=== PATIENT | male | born 1975 | race Caucasian/White ===

== ENCOUNTER → 2017-02-17 | Outpatient (CLI) | payer MEDICARE ==
[~2017-02-17] MED LIST: ATEN100T PO; ATOR10TA9 PO; BUTA1CAP8 PO; DULO60CA55 PO; FERR-46 PO; GABA600T2 PO; HYDR100C2 PO; HYDR50TA13 PO; MELO15TA6 PO; OMEP-110 PO; ONDA8TAB16 SL; OXYC-307 PO; OXYC10TA6 PO; SUMA100T4 PO; TIZA4TAB PO; TRAZ100T15 PO; iron
[2017-02-17 12:43] LABS: HEMATOCRIT 47.1 % (39.2-51.8); WHITE BLOOD COUNT 10.6 x10^3/uL (3.4-10)
[2017-02-17 12:53] LABS: BLOOD UREA NITROGEN 10 mg/dL (7-18)
[2017-02-17 12:58] LABS: ASPARTATE AMINO TRANSFERASE 28 U/L (15-37)
== END | disposition home or self-care (01) ==
LOC: STAR 11:04
PROVIDERS: ATTEND Orthopaedic Surgery Orthopaedic Surgery of the Spine
DX: Z01.818 Encounter for other preprocedural examination (principal); M50.30 Other cervical disc degeneration, unspecified cervical region; M48.02 Spinal stenosis, cervical region; Z98.890 Other specified postprocedural states
CPT/HCPCS: 36415; 71020; 80053; 81001; 85025; 93005

== ENCOUNTER 2017-03-01 00:10 | Inpatient (IN) | payer MEDICARE ==
[~2017-03-01] VITALS: Ht 188 cm; Wt 149.2 kg
[2017-03-01] MEDS ORDERED: ONDANSETRON 2MG/ML, 2ML ONE (00:54)
[2017-03-01] MEDS ORDERED: HYDROmorphone 1 MG/ML, 1ML ONE ×5 (00:54→04:43)
[2017-03-01] MEDS ORDERED: OXYC10TA47 PO (00:59)
[2017-03-01] MEDS ORDERED: OXYC10TA6 PO (00:59)
[2017-03-01] MEDS ORDERED: HYDROmorphone 1 MG/ML, 1ML IV ONE ×2 (01:00→02:00)
[2017-03-01] MEDS ORDERED: SODIUM CHLORIDE 0.9% 1,000ML IV ONE (01:00)
[2017-03-01] MEDS ORDERED: ONDANSETRON 2MG/ML, 2ML IVPush ONE (01:00)
[2017-03-01 01:13] LABS: HEMATOCRIT 41.8 % (39.2-51.8); HEMOGLOBIN 14.3 g/dL (13.7-18.0); WHITE BLOOD COUNT 13.2 x10^3/uL (3.4-10)
[2017-03-01 01:24] LABS: BLOOD UREA NITROGEN 10 mg/dL (7-18)
[2017-03-01] MEDS ORDERED: HYDROmorphone 2 MG/ML, 1ML IVPush STA ×2 (01:57→03:27)
[2017-03-01] MEDS ORDERED: HYDROmorphone 1 MG/ML, 1ML IVPush STA (03:27)
[2017-03-01] MEDS ORDERED: VANCOMYCIN PER PHARMACY MC ONE (04:00)
[2017-03-01] MEDS ORDERED: VANCOMYCIN 2,500 MG in SODIUM CHLORIDE 0.9% 500 ML IV ONE (04:00)
[2017-03-01] MEDS ORDERED: PIPERACILLIN/TAZO/PMX 3.375GM 50 ML IVPB ONE (04:00)
[2017-03-01] MEDS: SODIUM CHLORIDE 0.9% 1,000 ML IV ONE ×2 (04:16→05:50)
[2017-03-01] MEDS ORDERED: PIPERACILLIN/TAZO/PMX 3.375GM 50 ML ONE (04:18)
[2017-03-01] MEDS ORDERED: ONDANSETRON 2MG/ML, 2ML IVPush PRN ×2 (04:30)
[2017-03-01] MEDS ORDERED: hydrOXyzine 50MG TABLET PO PRN (04:30)
[2017-03-01] MEDS ORDERED: HYDROmorphone 1 MG/ML, 1ML IVPush PRN (04:30)
[2017-03-01] MEDS ORDERED: POLYETHYLENE GLYCOL 17 GM PACKET PO PRN (04:30)
[2017-03-01] MEDS ORDERED: ACETAMINOPHEN 325 MG TABLET PO PRN (04:30)
[2017-03-01] MEDS ORDERED: SUMATRIPTAN 100 MG TABLET PO PRN (04:30)
[2017-03-01] MEDS ORDERED: OXYcodone IR 5MG TABLET PO PRN (04:30)
[2017-03-01] MEDS ORDERED: BISACODYL 10 MG SUPP PR PRN (04:30)
[2017-03-01] MEDS ORDERED: ENALAPRILAT 1.25 MG/ML, 2ML IVPush PRN (04:30)
[2017-03-01] MEDS ORDERED: BUTALBIT/ACETAMIN/CAFF/CODEINE CAPSULE PO PRN (04:30)
[2017-03-01] MEDS ORDERED: VANCOMYCIN PER PHARMACY MC PRN (04:30)
[2017-03-01] MEDS ORDERED: hydrALAzine 20 MG/ML, 1ML IVPush PRN (04:30)
[2017-03-01] MEDS: PIPERACILLIN/TAZO/PMX 3.375GM 50 ML IV SCH ×2 (04:45→18:07)
[2017-03-01] MEDS ORDERED: OMNIPAQUE 350 MG/ML, 100ML BOTTLE ONE (04:49)
[2017-03-01 05:15] VITALS: BP 149/86
[2017-03-01 05:43] VITALS: BP 149/86
[2017-03-01] MEDS: OXYcodone IR 5MG TABLET PO SCH ×5 (05:48→20:08)
[2017-03-01] MEDS: SODIUM CHLORIDE 0.9% 1,000 ML IV SCH ×3 (05:50→18:08)
[2017-03-01] MEDS ORDERED: PHARMACOKINETIC MONITORING MC PRN (06:00)
[2017-03-01 08:32] VITALS: BP 126/75
[2017-03-01] MEDS ORDERED: ATENOLOL 100 MG TABLET PO SCH (09:00)
[2017-03-01] MEDS ORDERED: OMEPRAZOLE 20 MG CAPSULE.DR PO SCH (09:00)
[2017-03-01] MEDS: HYDROmorphone 2 MG/ML, 1ML IVPush PRN ×2 (09:27→17:20)
[2017-03-01] MEDS: OxyconTIN ER 10 MG TAB.ER PO SCH ×2 (09:28→20:08)
[2017-03-01] MEDS: DULOXETINE 30 MG CAPSULE.DR PO SCH (09:29)
[2017-03-01] MEDS: FERROUS SULFATE 325 MG TABLET PO SCH (09:30)
[2017-03-01] MEDS: SENNA/DOCUSATE TABLET PO SCH (09:30)
[2017-03-01] MEDS ORDERED: BUPIVACAINE/PF 0.5% ONE (11:48)
[2017-03-01] MEDS ORDERED: EPINEPHRINE 1 MG/ML, 1ML ONE (11:48)
[2017-03-01] MEDS ORDERED: THROMBIN 5,000 UNIT VIAL TP ONE (11:49)
[2017-03-01] MEDS ORDERED: BACITRACIN OINT 500U/GM, 15 GM ONE (11:49)
[2017-03-01] MEDS ORDERED: BACITRACIN 50,000 UNIT ONE (11:49)
[2017-03-01] MEDS ORDERED: MIDAZOLAM 1 MG/ML, 2ML ONE (12:22)
[2017-03-01] MEDS ORDERED: FENTANYL PF 100 MCG/2ML ONE ×2 (12:24→14:18)
[2017-03-01] MEDS ORDERED: GLYCOPYRROLATE 0.2MG/1ML ONE (12:29)
[2017-03-01] MEDS ORDERED: CEFAZOLIN 1,000 MG ONE (12:29)
[2017-03-01] MEDS ORDERED: PROPOFOL 10 MG/ML, 20ML ONE (12:29)
[2017-03-01] MEDS ORDERED: DEXAMETHASONE 4 MG/ML, 1ML ONE (12:29)
[2017-03-01] MEDS ORDERED: LIDOCAINE GEL 2%, 5ML ONE (12:29)
[2017-03-01] MEDS ORDERED: VANCOMYCIN 1,000 MG ONE (13:26)
[2017-03-01] MEDS ORDERED: BUPIVACAINE LIPOSOME/PF INFIL ONE (14:00)
[2017-03-01] MEDS ORDERED: PROPOFOL 100 ML IV ONE (14:41)
[2017-03-01] MEDS: PROPOFOL 100 ML IV PRN ×5 (15:00→23:15)
[2017-03-01] MEDS: ALBUTEROL/IPRATROPIUM 2.5MG/0.5MG, 3 ML INLINE SCH ×3 (16:00→21:54)
[2017-03-01] MEDS ORDERED: LIDOCAINE-MPF 1%, 2ML ENDO PRN (16:00)
[2017-03-01 16:01] LABS: ABG COLLECTION SITE LEFT BRACHIAL
[2017-03-01] MEDS: FAMOTIDINE 20 MG/2 ML IV SCH (18:08)
[2017-03-01] MEDS: HEPARIN 5,000 UNITS/ML, 1ML SQ SCH (18:08)
[2017-03-01] MEDS: ATORVASTATIN 40 MG TABLET PO SCH (20:07)
[2017-03-01] MEDS: GABAPENTIN 400 MG CAPSULE PO SCH (20:07)
[2017-03-01] MEDS ORDERED: TRAZODONE 100MG TABLET PO SCH (21:00)
[2017-03-01] MEDS: TRAZODONE 100MG TABLET PO SCH (21:31)
[2017-03-02] MEDS: PIPERACILLIN/TAZO/PMX 3.375GM 50 ML IV SCH ×2 (00:02→05:13)
[2017-03-02] MEDS: VANCOMYCIN 2,200 MG in SODIUM CHLORIDE 0.9% 500 ML IV SCH ×3 (00:02→18:43)
[2017-03-02] MEDS: HEPARIN 5,000 UNITS/ML, 1ML SQ SCH ×3 (00:02→16:30)
[2017-03-02] MEDS: OXYcodone IR 5MG TABLET PO SCH ×6 (00:03→20:06)
[2017-03-02] MEDS: PROPOFOL 100 ML IV PRN ×4 (01:07→07:12)
[2017-03-02] MEDS: ALBUTEROL/IPRATROPIUM 2.5MG/0.5MG, 3 ML INLINE SCH ×3 (04:00→10:50)
[2017-03-02] MEDS: FAMOTIDINE 20 MG/2 ML IV SCH ×2 (04:05→16:30)
[2017-03-02 05:00] VITALS: BP 132/69
[2017-03-02] MEDS: SODIUM CHLORIDE 0.9% 1,000 ML IV SCH ×2 (05:13→14:38)
[2017-03-02 05:46] LABS: BLOOD UREA NITROGEN 9 mg/dL (7-18)
[2017-03-02 05:53] LABS: ASPARTATE AMINO TRANSFERASE 24 U/L (15-37)
[2017-03-02 06:09] LABS: ABG COLLECTION SITE RIGHT RADIAL; COLLATERAL CIRCULATION TESTING NORMAL
[2017-03-02 07:23] LABS: HEMATOCRIT 38.7 % (39.2-51.8); HEMOGLOBIN 13.3 g/dL (13.7-18.0); WHITE BLOOD COUNT 14.9 x10^3/uL (3.4-10)
[2017-03-02] MEDS: HYDROmorphone 2 MG/ML, 1ML IVPush PRN (07:51)
[2017-03-02] MEDS: OxyconTIN ER 10 MG TAB.ER PO SCH ×2 (09:00→20:06)
[2017-03-02] MEDS: DULOXETINE 30 MG CAPSULE.DR PO SCH (10:05)
[2017-03-02] MEDS: FERROUS SULFATE 325 MG TABLET PO SCH (10:06)
[2017-03-02] MEDS: ATENOLOL 50 MG TABLET PO SCH (10:06)
[2017-03-02] MEDS: SENNA/DOCUSATE TABLET PO SCH (10:06)
[2017-03-02] MEDS: DEXAMETHASONE 4 MG/ML, 1ML IVPush SCH ×2 (10:23→16:30)
[2017-03-02] MEDS: PIPERACILLIN/TAZO/PMX 4.5GM 100 ML IV SCH ×2 (12:43→22:22)
[2017-03-02] MEDS: VANCOMYCIN 2,000 MG in SODIUM CHLORIDE 0.9% 500 ML IV SCH (20:06)
[2017-03-02] MEDS: GABAPENTIN 400 MG CAPSULE PO SCH (20:06)
[2017-03-02] MEDS: TRAZODONE 100MG TABLET PO SCH (20:07)
[2017-03-02] MEDS: ATORVASTATIN 40 MG TABLET PO SCH (20:07)
[2017-03-03] MEDS: HEPARIN 5,000 UNITS/ML, 1ML SQ SCH ×3 (00:37→16:29)
[2017-03-03] MEDS: OXYcodone IR 5MG TABLET PO SCH ×6 (00:37→20:40)
[2017-03-03] MEDS: FAMOTIDINE 20 MG/2 ML IV SCH ×2 (04:24→16:29)
[2017-03-03 05:00] LABS: HEMATOCRIT 36.2 % (39.2-51.8); HEMOGLOBIN 12.2 g/dL (13.7-18.0); WHITE BLOOD COUNT 10.8 x10^3/uL (3.4-10)
[2017-03-03 05:08] LABS: BLOOD UREA NITROGEN 11 mg/dL (7-18)
[2017-03-03 05:13] LABS: ASPARTATE AMINO TRANSFERASE 10 U/L (15-37)
[2017-03-03] MEDS: PIPERACILLIN/TAZO/PMX 4.5GM 100 ML IV SCH ×3 (05:56→22:47)
[2017-03-03 06:07] VITALS: BP 120/60
[2017-03-03] MEDS: VANCOMYCIN 2,000 MG in SODIUM CHLORIDE 0.9% 500 ML IV SCH ×2 (08:01→19:36)
[2017-03-03] MEDS: SODIUM CHLORIDE 0.9% 1,000 ML IV SCH (08:01)
[2017-03-03] MEDS: FERROUS SULFATE 325 MG TABLET PO SCH (09:01)
[2017-03-03] MEDS: SENNA/DOCUSATE TABLET PO SCH (09:01)
[2017-03-03] MEDS: ATENOLOL 50 MG TABLET PO SCH (09:01)
[2017-03-03] MEDS: DULOXETINE 30 MG CAPSULE.DR PO SCH (09:01)
[2017-03-03] MEDS: OxyconTIN ER 10 MG TAB.ER PO SCH ×2 (09:02→22:47)
[2017-03-03 17:30] VITALS: BP 107/82
[2017-03-03] MEDS: GABAPENTIN 400 MG CAPSULE PO SCH (20:40)
[2017-03-03] MEDS: ATORVASTATIN 40 MG TABLET PO SCH (20:40)
[2017-03-03 20:45] VITALS: BP 117/77
[2017-03-03] MEDS: TRAZODONE 100MG TABLET PO SCH (22:47)
[2017-03-03 23:20] VITALS: BP 115/72
[2017-03-04] MEDS: HEPARIN 5,000 UNITS/ML, 1ML SQ SCH ×3 (01:18→15:51)
[2017-03-04] MEDS: OXYcodone IR 5MG TABLET PO SCH ×5 (01:18→18:13)
[2017-03-04 03:59] VITALS: BP_SYST 116; BP_SYST 132; BP_DIAS 46; BP_DIAS 83
[2017-03-04] MEDS: FAMOTIDINE 20 MG/2 ML IV SCH ×2 (04:38→15:51)
[2017-03-04 05:23] LABS: HEMATOCRIT 37.1 % (39.2-51.8); HEMOGLOBIN 12.4 g/dL (13.7-18.0); WHITE BLOOD COUNT 8.5 x10^3/uL (3.4-10)
[2017-03-04] MEDS: PIPERACILLIN/TAZO/PMX 4.5GM 100 ML IV SCH (05:26)
[2017-03-04 05:34] LABS: BLOOD UREA NITROGEN 11 mg/dL (7-18)
[2017-03-04 07:38] VITALS: BP 117/77
[2017-03-04] MEDS: SENNA/DOCUSATE TABLET PO SCH (08:51)
[2017-03-04] MEDS: FERROUS SULFATE 325 MG TABLET PO SCH (08:51)
[2017-03-04] MEDS: DULOXETINE 30 MG CAPSULE.DR PO SCH (08:51)
[2017-03-04] MEDS: OxyconTIN ER 10 MG TAB.ER PO SCH ×2 (08:51→21:34)
[2017-03-04] MEDS: ATENOLOL 50 MG TABLET PO SCH (08:52)
[2017-03-04] MEDS: ERTAPENEM 1 GM in SODIUM CHLORIDE 0.9% 50 ML IV SCH (11:29)
[2017-03-04 13:53] VITALS: BP 126/80
[2017-03-04] MEDS ORDERED: PICC FLUSH PROTOCOL XX SCH (16:30)
[2017-03-04 19:10] VITALS: BP 114/74
[2017-03-04] MEDS: GABAPENTIN 400 MG CAPSULE PO SCH (21:33)
[2017-03-04] MEDS: ATORVASTATIN 40 MG TABLET PO SCH (21:33)
[2017-03-04] MEDS: TRAZODONE 100MG TABLET PO SCH (21:34)
[2017-03-05] MEDS: OXYcodone IR 5MG TABLET PO SCH ×5 (00:06→16:02)
[2017-03-05 02:59] VITALS: BP 116/70
[2017-03-05 05:03] LABS: HEMATOCRIT 35.8 % (39.2-51.8); HEMOGLOBIN 12.1 g/dL (13.7-18.0); WHITE BLOOD COUNT 8.1 x10^3/uL (3.4-10)
[2017-03-05 08:00] VITALS: BP 149/89
[2017-03-05] MEDS: HEPARIN 5,000 UNITS/ML, 1ML SQ SCH ×3 (08:06→16:02)
[2017-03-05] MEDS: FERROUS SULFATE 325 MG TABLET PO SCH (08:07)
[2017-03-05] MEDS: OxyconTIN ER 10 MG TAB.ER PO SCH (08:07)
[2017-03-05] MEDS: DULOXETINE 30 MG CAPSULE.DR PO SCH (08:07)
[2017-03-05] MEDS: SENNA/DOCUSATE TABLET PO SCH (08:08)
[2017-03-05] MEDS: ATENOLOL 50 MG TABLET PO SCH (08:08)
[2017-03-05] MEDS ORDERED: FAMOTIDINE 20 MG TABLET PO SCH (09:00)
[2017-03-05] MEDS: ERTAPENEM 1 GM in SODIUM CHLORIDE 0.9% 50 ML IV SCH (11:55)
[2017-03-05 14:00] VITALS: BP 122/77
[2017-03-05] MEDS ORDERED: POLY17PO5 PO (14:20)
[2017-03-05] MEDS ORDERED: ERTA1VIA IV (14:20)
[2017-03-05] MEDS ORDERED: MAGN400T26 PO (14:35)
== END 2017-03-05 16:30 | disposition home or self-care (01) | DRG 901 ==
LOC: ED 00:38 → EDIP 04:16 → 4NOR 05:30 → CCU 14:50 → 4NOR 03-03 16:03
PROVIDERS: ADMIT Internal Medicine; ATTEND Internal Medicine
PROC: 0RP30JZ Removal of Synthetic Substitute from Cervical Vertebral Disc, Open Approach (ICD-10-PCS; 2017-03-01)
PROC: 0JB50ZZ Excision of Left Neck Subcutaneous Tissue and Fascia, Open Approach (ICD-10-PCS; 2017-03-01)
PROC: 0H94XZZ Drainage of Neck Skin, External Approach (ICD-10-PCS; principal; 2017-03-01 11:30)
PROC: 5A1935Z Respiratory Ventilation, Less than 24 Consecutive Hours (ICD-10-PCS; 2017-03-02)
PROC: 0BH17EZ Insertion of Endotracheal Airway into Trachea, Via Natural or Artificial Opening (ICD-10-PCS; 2017-03-02)
PROC: 02HV33Z Insertion of Infusion Device into Superior Vena Cava, Percutaneous Approach (ICD-10-PCS; 2017-03-04)
PROC: B548ZZA Ultrasonography of Superior Vena Cava, Guidance (ICD-10-PCS; 2017-03-04)
DX: T85.79XA Infection and inflammatory reaction due to other internal prosthetic devices, implants and grafts, initial encounter (principal); A41.9 Sepsis, unspecified organism; J96.00 Acute respiratory failure, unspecified whether with hypoxia or hypercapnia; E43 Unspecified severe protein-calorie malnutrition; Z99.11 Dependence on respirator [ventilator] status; T86.832 Bone graft infection; J18.9 Pneumonia, unspecified organism; L02.11 Cutaneous abscess of neck; Z68.41 Body mass index [BMI] 40.0-44.9, adult; T81.4XXA Infection following a procedure, initial encounter; J98.11 Atelectasis; E66.01 Morbid (severe) obesity due to excess calories; E78.5 Hyperlipidemia, unspecified; K21.9 Gastro-esophageal reflux disease without esophagitis; G43.909 Migraine, unspecified, not intractable, without status migrainosus; M54.2 Cervicalgia; G47.33 Obstructive sleep apnea (adult) (pediatric); D63.8 Anemia in other chronic diseases classified elsewhere; Z51.5 Encounter for palliative care; F43.10 Post-traumatic stress disorder, unspecified; D50.9 Iron deficiency anemia, unspecified; Y83.8 Other surgical procedures as the cause of abnormal reaction of the patient, or of later complication, without mention of misadventure at the time of the procedure; Z88.5 Allergy status to narcotic agent; Z91.010 Allergy to peanuts; Z98.1 Arthrodesis status; Z82.49 Family history of ischemic heart disease and other diseases of the circulatory system; Y92.89 Other specified places as the place of occurrence of the external cause
CPT/HCPCS: 36415; 36569; 36600; 71010; 72126; 76937; 77001; 80048; 80053; 80202; 82803; 83605; 83735; 84145; 84478; 85025; 87040; 87070; 87075; 87077; 87081; 87186; 87205; 94002; 94003; 94640; 96374; 96375; 96376; C9290; J0171; J0690; J1100; J1170; J1335; J1644; J2250; J2405; J2543; J2704; J3010; J3370; J3490; J7620; Q9967; C1751; J7030; J7040; S0028

== ENCOUNTER 2017-03-07 16:53 | Emergency (ER) | payer MEDICARE ==
[~2017-03-07 16:53] MED LIST changes: +ERTA1VIA IV; +MAGN400T26 PO; +OXYC10TA47 PO; +POLY17PO5 PO
[2017-03-07] MEDS ORDERED: HYDROmorphone 1 MG/ML, 1ML ONE (19:19)
[2017-03-07] MEDS ORDERED: HYDROmorphone 2 MG/ML, 1ML IVPush PRN (19:30)
[2017-03-07] MEDS ORDERED: PLEASE ENTER HEIGHT AND WEIGHT MC SCH (19:30)
[2017-03-07 19:42] LABS: HEMOGLOBIN 13.1 g/dL (13.7-18.0); WHITE BLOOD COUNT 10.9 x10^3/uL (3.4-10)
[2017-03-07 19:50] LABS: BLOOD UREA NITROGEN 9 mg/dL (7-18)
[2017-03-07 20:41] VITALS: BP 140/86
== END 2017-03-07 20:43 | disposition home or self-care (01) ==
LOC: ED 19:26
DX: M25.522 Pain in left elbow (principal); M25.521 Pain in right elbow; M79.632 Pain in left forearm; M79.631 Pain in right forearm; M79.622 Pain in left upper arm; M79.621 Pain in right upper arm; M79.89 Other specified soft tissue disorders; E66.01 Morbid (severe) obesity due to excess calories; F43.10 Post-traumatic stress disorder, unspecified; Z98.1 Arthrodesis status
CPT/HCPCS: 36415; 80048; 82040; 85025; 85610; 85730; 93005; 93971; 96374; 99285; J1170

== ENCOUNTER → 2017-03-10 | Outpatient (CLI) | payer MEDICARE | END | disposition home or self-care (01) | LOC: CFH 14:30 | PROVIDERS: ATTEND Internal Medicine Infectious Disease | DX: M79.89 Other specified soft tissue disorders (principal); A41.9 Sepsis, unspecified organism ==

== ENCOUNTER → 2017-03-18 | Outpatient (CLI) | payer MEDICARE | END | disposition home or self-care (01) | LOC: CFH 15:33 | PROVIDERS: ATTEND Orthopaedic Surgery Orthopaedic Surgery of the Spine | DX: I82.611 Acute embolism and thrombosis of superficial veins of right upper extremity (principal) | CPT/HCPCS: 93970 ==

== ENCOUNTER → 2017-05-04 | Outpatient (CLI) | payer MEDICARE | LOC: STAR 14:17 | PROVIDERS: ATTEND Internal Medicine Infectious Disease | DX: A49.8 Other bacterial infections of unspecified site (principal) | CPT/HCPCS: 93005 ==

== ENCOUNTER → 2017-07-21 | Outpatient (CLI) | payer MEDICARE | LOC: STAR 14:45 | PROVIDERS: ATTEND Internal Medicine Infectious Disease | DX: I45.81 Long QT syndrome (principal) | CPT/HCPCS: 93005 ==

== ENCOUNTER 2018-04-24 09:57 | Emergency (ER) | payer MEDICARE, OTHER ==
[~2018-04-24 09:57] MED LIST changes: +TRAZ-137 PO; -TRAZ100T15 PO
== END 2018-04-24 10:45 | disposition left against medical advice (07) ==
LOC: ED 10:15
DX: R07.9 Chest pain, unspecified (principal); Z53.21 Procedure and treatment not carried out due to patient leaving prior to being seen by health care provider

== ENCOUNTER 2018-12-17 13:56 | Emergency (ER) | payer MEDICARE, OTHER ==
[~2018-12-17] VITALS: Ht 172.7 cm; Wt 139.0 kg
[~2018-12-17 13:56] MED LIST changes: -GABA600T2 PO; +GABA600T7 PO
--- NOTE | 2018-12-17 14:19 | NUR ---
BIB [facility] FOR N/V X 8 HOURS. REPORTS HE AWOKE THIS AM NAUSEATED AND ESTIMATES HE HAS HAD 20 LOOSE STOOLS TODAY, HAS VOMITIED MULTIPLE TIMES WELL. 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
[2018-12-17 14:26] LABS: MEAN CORPUSCULAR HEMOGLOBIN 31.1 pg (27.5-34.5); MEAN CORPUSCULAR HGB CONC 33.5 g/dL (33.2-36.2); MEAN CORPUSCULAR VOLUME 92.7 fL (81-97); MEAN PLATELET VOLUME 8.5 fL (7.4-10.4); PLATELET COUNT 171 x10^3/uL (130-400); RED BLOOD COUNT 5.51 x10^6/uL (4.38-5.82); RED CELL DISTRIBUTION WIDTH 14.3 % (9.4-14.8)
[2018-12-17] MEDS ORDERED: SODIUM CHLORIDE FLUSH 10ML SYR IVF ONE (14:30)
[2018-12-17] MEDS ORDERED: PLEASE ENTER HEIGHT AND WEIGHT MC SCH (14:30)
[2018-12-17] MEDS ORDERED: KETOROLAC 30 MG/1 ML IVPush ONE (14:30)
[2018-12-17] MEDS ORDERED: METOCLOPRAMIDE 5 MG/ML, 2ML IVPush ONE (14:30)
[2018-12-17] MEDS ORDERED: DIPHENHYDRAMINE 50 MG/ML, 1ML IVPush ONE (14:30)
[2018-12-17] MEDS ORDERED: DIPHENHYDRAMINE 50 MG/ML, 1ML ONE (14:31)
[2018-12-17] MEDS ORDERED: METOCLOPRAMIDE 5 MG/ML, 2ML ONE (14:31)
[2018-12-17] MEDS ORDERED: KETOROLAC 60 MG/2 ML ONE (14:31)
[2018-12-17 14:38] LABS: ALANINE AMINOTRANSFERASE 49 U/L (12-78); ALBUMIN 3.4 g/dL (3.4-5.0); ANION GAP 8 mmol/L (5-15); CALCIUM 8.6 mg/dL (8.5-10.1); CHLORIDE 110 mmol/L (98-107); CREATININE 1.08 mg/dL (0.7-1.3)
[2018-12-17 14:43] LABS: ALKALINE PHOSPHATASE 190 U/L (45-117); BILIRUBIN,TOTAL 1.5 mg/dL (0.2-1.0); TOTAL PROTEIN 6.9 g/dL (6.4-8.2); TROPONIN I < 0.015 ng/mL (0.000-0.045)
--- NOTE | 2018-12-17 14:49 | NUR ---
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
[2018-12-17 14:52] LABS: MD YES
--- NOTE | 2018-12-17 15:01 | NUR ---
patient reports boyle/nausea improved to 0/10 provided with mouth swabs for comfort 1 liter of ns provided by ems completed and disconnected
[2018-12-17] MEDS ORDERED: OMEP-110 PO (15:27)
[2018-12-17] MEDS ORDERED: TIZA2CAP PO (15:27)
[2018-12-17] MEDS ORDERED: MELA5TAB10 SL (15:27)
[2018-12-17] MEDS ORDERED: GABA300C10 PO (15:27)
[2018-12-17] MEDS ORDERED: MORPHINE SULFATE 4 MG/ML, 1ML IVPush PRN (15:30)
[2018-12-17] MEDS ORDERED: SUMATRIPTAN 6MG/0.5ML SQ PRN (15:30)
[2018-12-17] MEDS ORDERED: SUMATRIPTAN 6MG/0.5ML SQ ONE (15:53)
[2018-12-17] MEDS ORDERED: OMNIPAQUE 350 MG/ML, 150 ML BOTTLE ONE (16:01)
[2018-12-17 16:06] VITALS: BP 100/61
[2018-12-17 16:06] LABS: BAND#(MANUAL) 2.57 x10^3/uL; BANDS%(MANUAL) 19 % (0-7); EOS#(MANUAL) 0.14 x10^3/uL (0.0-0.4); EOS% (MANUAL) 1 % (1-7); LYMPH#(MANUAL) 0.68 x10^3/uL (1-3.4); LYMPHS% (MANUAL) 5 % (22-44); MONOS#(MANUAL) 0.68 x10^3/uL (0.3-2.7); MONOS% (MANUAL) 5 % (2-9); SEG#(MANUAL) 9.45 x10^3/uL (1.8-6.8); SEGS% (MANUAL) 70 % (42-75)
--- NOTE | 2018-12-17 16:06 | NUR ---
PT MEDICATED FOR HEADACHE PER EMAR. PT REPORTS NAUSEA
[2018-12-17 16:07] LABS: <PLATELET ESTIMATE> ADEQUATE; <PLT MORPHOLOGY> NORMAL PLT MORPH; <RBC MORPHOLOGY> NORMAL
[2018-12-17] MEDS ORDERED: DICYCLOMINE 10 MG/ML, 2ML IM ONE (16:30)
[2018-12-17] MEDS ORDERED: ONDANSETRON 2MG/ML, 2ML ONE (16:32)
[2018-12-17] MEDS ORDERED: MAALOX/HYOSCYAMINE/LIDOCAINE 45 ML BTL ONE (16:32)
--- NOTE | 2018-12-17 16:36 | NUR ---
PT MEDICATED FOR NAUSEA PER EMAR
[2018-12-17] MEDS ORDERED: SODIUM CHLORIDE 0.9% 1,000ML IVBOLUS ONE (17:00)
[2018-12-17] MEDS ORDERED: ONDANSETRON 2MG/ML, 2ML IVPush ONE (17:00)
[2018-12-17] MEDS ORDERED: MAALOX/HYOSCYAMINE/LIDOCAINE 45 ML BTL PO ONE (17:00)
== END 2018-12-17 18:20 | disposition home or self-care (01) ==
LOC: ED 15:12
DX: R11.2 Nausea with vomiting, unspecified (principal); R07.89 Other chest pain; R19.7 Diarrhea, unspecified
CPT/HCPCS: 36415; 71045; 71275; 76700; 80053; 83690; 84484; 85025; 85379; 93005; 96361; 96372; 96374; 96375; 99284; J1200; J1885; J2405; J2765; J3030; J7030; Q9967

== ENCOUNTER → 2019-07-29 | Outpatient (CLI) | payer MEDICARE ==
[~2019-07-29] MED LIST changes: -DULO60CA55 PO; +DULO60CA56 PO; +GABA300C10 PO; -HYDR50TA13 PO; +HYDR50TA99 PO; +MELA5TAB10 SL; +OMNIPAQUE 350 MG/ML, 100ML BOTTLE ONE; +TIZA2CAP PO; -TIZA4TAB PO; +TIZA4TAB2 PO; -TRAZ-137 PO; +TRAZ-175 PO
== END | disposition home or self-care (01) ==
LOC: CFH 11:26
PROVIDERS: ATTEND Surgery
DX: K80.20 Calculus of gallbladder without cholecystitis without obstruction (principal); R91.8 Other nonspecific abnormal finding of lung field; R10.9 Unspecified abdominal pain
CPT/HCPCS: 71260; 74177; Q9967

== ENCOUNTER → 2019-08-26 | Outpatient (CLI) | payer MEDICARE ==
[~2019-08-26] MED LIST changes: +ACET-1600 PO; +ATOR80TA PO; +BUTA1CAP60 PO; +CELE200C PO; +DIPH1TAB PO; +GABA-827 PO; +MELA5TAB14 PO; -OMNIPAQUE 350 MG/ML, 100ML BOTTLE ONE; +VERA120C2 PO; +VERA180T6 PO
[2019-08-26 16:37] LABS: BASOPHILS # (AUTO) 0.12 x10^3/uL (0-0.1); BASOPHILS % (AUTO) 1 % (0-1); EOSINOPHILS % (AUTO) 2 % (1-7); LYMPHOCYTES # (AUTO) 2.77 x10^3/uL (1-3.4); LYMPHOCYTES % (AUTO) 32 % (22-44); MD NO; MEAN CORPUSCULAR HEMOGLOBIN 29.4 pg (27.5-34.5); MEAN CORPUSCULAR HGB CONC 32.8 g/dL (33.2-36.2); MEAN CORPUSCULAR VOLUME 89.4 fL (81-97); MEAN PLATELET VOLUME 9.5 fL (7.4-10.4); MONOCYTES # (AUTO) 0.71 x10^3/uL (0.2-0.8); MONOCYTES % (AUTO) 8 % (2-9); NEUTROPHILS # (AUTO) 4.91 x10^3/uL (1.8-6.8); NEUTROPHILS % (AUTO) 56 % (42-75); PLATELET COUNT 224 x10^3/uL (130-400); RED BLOOD COUNT 5.49 x10^6/uL (4.38-5.82); RED CELL DISTRIBUTION WIDTH 13.2 % (9.4-14.8)
[2019-08-26 16:40] LABS: ALANINE AMINOTRANSFERASE 57 U/L (12-78); ALBUMIN 3.6 g/dL (3.4-5.0); ANION GAP 6 mmol/L (5-15); CALCIUM 8.7 mg/dL (8.5-10.1); CHLORIDE 107 mmol/L (98-107); CREATININE 1.06 mg/dL (0.7-1.3)
[2019-08-26 16:41] LABS: ALKALINE PHOSPHATASE 185 U/L (45-117); BILIRUBIN,TOTAL 0.9 mg/dL (0.2-1.0); TOTAL PROTEIN 7.2 g/dL (6.4-8.2)
== END | disposition home or self-care (01) ==
LOC: STAR 15:10
PROVIDERS: ATTEND Surgery
DX: Z01.818 Encounter for other preprocedural examination (principal)
CPT/HCPCS: 36415; 80053; 85025; 93005

== ENCOUNTER 2019-08-31 08:29 | Day surgery (SDC) | payer MEDICARE ==
[~2019-08-31] VITALS: Ht 188 cm; Wt 140.6 kg
[~2019-08-31 08:29] MED LIST changes: -ACET-1600 PO
[2019-08-31 09:27] VITALS: BP 113/57
[2019-08-31] MEDS ORDERED: INDOCYANINE GREEN 25 MG VIAL ONE (09:34)
[2019-08-31] MEDS ORDERED: LACTATED RINGERS 1,000 ML IV SCH (09:44)
[2019-08-31] MEDS ORDERED: ACET-1600 PO (09:55)
[2019-08-31] MEDS ORDERED: INDOCYANINE GREEN 25 MG VIAL IVPush ONE (10:00)
[2019-08-31] MEDS ORDERED: BUPIVACAINE/PF 0.5% ONE (10:09)
[2019-08-31] MEDS ORDERED: MIDAZOLAM 1 MG/ML, 2ML ONE (10:30)
[2019-08-31] MEDS ORDERED: FENTANYL PF 100 MCG/2ML ONE ×3 (10:32→12:08)
[2019-08-31] MEDS ORDERED: GLYCOPYRROLATE 0.2MG/1ML, 5ML ONE (11:06)
[2019-08-31] MEDS ORDERED: DEXAMETHASONE 4 MG/ML, 1ML ONE (11:06)
[2019-08-31] MEDS ORDERED: CEFAZOLIN 1,000 MG ONE (11:06)
[2019-08-31] MEDS ORDERED: SUCCINYLCHOLINE 20 MG/ML, 10ML ONE (11:06)
[2019-08-31] MEDS ORDERED: NEOSTIGMINE 1 MG/ML, 10ML ONE (11:06)
[2019-08-31] MEDS ORDERED: ONDANSETRON 2MG/ML, 2ML ONE (11:06)
[2019-08-31] MEDS ORDERED: PROPOFOL 10 MG/ML, 20ML ONE (11:06)
[2019-08-31] MEDS ORDERED: ROCURONIUM 10MG/ML,5ML ONE (11:06)
[2019-08-31] MEDS ORDERED: KETOROLAC 30 MG/1 ML IV PRN (11:30)
[2019-08-31] MEDS ORDERED: ACETAMINOPHEN 325 MG TABLET PO PRN (11:30)
[2019-08-31] MEDS ORDERED: MEPERIDINE/PF 25MG/ML,1ML IVPush PRN (11:30)
[2019-08-31] MEDS ORDERED: PROMETHAZINE 25 MG/ML, 1ML IV PRN (11:30)
[2019-08-31] MEDS ORDERED: OXYcodone 5 MG/5 ML ORAL.SOL UDC PO PRN (11:30)
[2019-08-31] MEDS ORDERED: HYDROmorphone 1 MG/ML, 1ML INJ IVPush PRN (11:30)
[2019-08-31] MEDS ORDERED: OXYcodone 5 MG/5 ML ORAL.SOL UDC ONE (11:38)
[2019-08-31] MEDS ORDERED: PROMETHAZINE 25 MG/ML, 1ML ONE (11:38)
[2019-08-31] MEDS: FENTANYL PF 100 MCG/2ML IV PRN ×4 (11:40→12:16)
== END 2019-08-31 14:15 | disposition home or self-care (01) ==
LOC: OUT 08:29
PROVIDERS: ATTEND Surgery
DX: K80.20 Calculus of gallbladder without cholecystitis without obstruction (principal); G47.33 Obstructive sleep apnea (adult) (pediatric); E66.01 Morbid (severe) obesity due to excess calories; I10 Essential (primary) hypertension; E78.00 Pure hypercholesterolemia, unspecified; E04.1 Nontoxic single thyroid nodule; F17.210 Nicotine dependence, cigarettes, uncomplicated; Z68.35 Body mass index [BMI] 35.0-35.9, adult; Z79.899 Other long term (current) drug therapy; Z88.5 Allergy status to narcotic agent; Z98.1 Arthrodesis status; Z98.890 Other specified postprocedural states; Z80.1 Family history of malignant neoplasm of trachea, bronchus and lung; Z80.8 Family history of malignant neoplasm of other organs or systems; Z82.49 Family history of ischemic heart disease and other diseases of the circulatory system; Z83.3 Family history of diabetes mellitus; Z82.0 Family history of epilepsy and other diseases of the nervous system
CPT/HCPCS: 47562; 88304; J0330; J0690; J1100; J1885; J2250; J2405; J2704; J2710; J3010; J7120

== ENCOUNTER → 2019-11-30 | Outpatient (CLI) | payer MEDICARE ==
[~2019-11-30] MED LIST changes: +ACET-1600 PO; +LIDOCAINE 1%, 10ML ONE
== END | disposition home or self-care (01) ==
LOC: RAD 12:48
PROVIDERS: ATTEND Surgery
DX: E04.1 Nontoxic single thyroid nodule (principal)
CPT/HCPCS: 76536

== ENCOUNTER → 2019-12-22 | Outpatient (CLI) | payer MEDICARE ==
[~2019-12-22] MED LIST changes: -LIDOCAINE 1%, 10ML ONE; +ZOLP10TA PO
== END | disposition home or self-care (01) ==
LOC: STAR 09:39
PROVIDERS: ATTEND Surgery
DX: Z01.818 Encounter for other preprocedural examination (principal)
CPT/HCPCS: 36415; 86800

== ENCOUNTER 2019-12-26 06:49 | Inpatient (IN) | payer MEDICARE ==
[2019-12-22 13:53] VITALS: BP 112/89
[~2019-12-26] VITALS: Ht 188 cm; Wt 137.5 kg
[2019-12-26] MEDS ORDERED: CHLORHEXIDINE 15 ML UDC MM ONE (07:30)
[2019-12-26] MEDS ORDERED: ACETAMINOPHEN 500 MG TABLET PO ONE (07:30)
[2019-12-26] MEDS ORDERED: GABAPENTIN 300 MG CAPSULE PO ONE (07:30)
[2019-12-26] MEDS ORDERED: LACTATED RINGERS 1,000 ML IV SCH (07:50)
[2019-12-26 08:05] LABS: ALANINE AMINOTRANSFERASE 41 U/L (12-78); ALBUMIN 3.4 g/dL (3.4-5.0); CALCIUM 8.5 mg/dL (8.5-10.1)
[2019-12-26 08:08] LABS: ALKALINE PHOSPHATASE 195 U/L (45-117); BILIRUBIN,TOTAL 0.8 mg/dL (0.2-1.0); CREATININE 0.99 mg/dL (0.7-1.3); TOTAL PROTEIN 6.7 g/dL (6.4-8.2)
[2019-12-26] MEDS ORDERED: SUCCINYLCHOLINE 20 MG/ML, 10ML ONE (08:24)
[2019-12-26] MEDS ORDERED: DEXAMETHASONE 4 MG/ML, 1ML ONE (08:24)
[2019-12-26] MEDS ORDERED: PROPOFOL 10 MG/ML, 20ML ONE (08:24)
[2019-12-26] MEDS ORDERED: ONDANSETRON 2MG/ML, 2ML ONE (08:24)
[2019-12-26] MEDS ORDERED: ROCURONIUM 10MG/ML,5ML ONE (08:24)
[2019-12-26] MEDS ORDERED: MIDAZOLAM 1 MG/ML, 2ML ONE (08:24)
[2019-12-26] MEDS ORDERED: CEFAZOLIN 1,000 MG ONE (08:24)
[2019-12-26] MEDS ORDERED: FENTANYL PF 250 MCG/5ML ONE (08:24)
[2019-12-26 08:30] LABS: ANION GAP 7 mmol/L (5-15); CHLORIDE 110 mmol/L (98-107)
[2019-12-26] MEDS ORDERED: FENTANYL PF 100 MCG/2ML ONE ×2 (10:07→11:03)
[2019-12-26] MEDS: FENTANYL PF 100 MCG/2ML IV PRN ×4 (10:11→11:05)
[2019-12-26] MEDS ORDERED: HYDROmorphone 1 MG/ML, 1ML INJ IVPush PRN (10:30)
[2019-12-26] MEDS ORDERED: hydrALAzine 20 MG/ML, 1ML IV PRN (10:30)
[2019-12-26] MEDS ORDERED: LABETALOL 5MG/ML, 20ML IV PRN (10:30)
[2019-12-26] MEDS ORDERED: OXYcodone 5 MG/5 ML ORAL.SOL UDC PO PRN (10:30)
[2019-12-26] MEDS ORDERED: PROMETHAZINE 25 MG/ML, 1ML IVPush PRN (10:30)
[2019-12-26] MEDS ORDERED: HALOPERIDOL 5 MG/ML IV PRN ×2 (10:30)
[2019-12-26] MEDS ORDERED: DIPHENHYDRAMINE 50 MG/ML, 1ML IVPush PRN ×2 (10:30→12:00)
[2019-12-26] MEDS ORDERED: MEPERIDINE/PF 25MG/0.5ML IVPush PRN (10:30)
[2019-12-26] MEDS ORDERED: OXYcodone 5 MG/5 ML ORAL.SOL UDC ONE (10:33)
[2019-12-26] MEDS ORDERED: SUMATRIPTAN 100 MG TABLET PO PRN (12:00)
[2019-12-26] MEDS ORDERED: TIZANIDINE 2MG TABLET PO PRN (12:00)
[2019-12-26] MEDS ORDERED: DIPHENOXYLATE/ATROPINE TABLET PO PRN (12:00)
[2019-12-26] MEDS ORDERED: POTASSIUM CHLORIDE 20 MEQ in LACTATED RINGERS 1,000 ML IV SCH (12:30)
[2019-12-26] MEDS ORDERED: ONDANSETRON 2MG/ML, 2ML IV PRN (12:30)
[2019-12-26] MEDS ORDERED: morphine SULFATE 10 MG/ML, 1ML IV PRN (12:30)
[2019-12-26 13:15] VITALS: BP 132/81
[2019-12-26] MEDS: DULOXETINE 30 MG CAPSULE.DR PO SCH (14:01)
[2019-12-26] MEDS: OXYcodone/APAP 5/325MG TABLET PO PRN ×3 (14:40→23:46)
[2019-12-26] MEDS: LACTATED RINGERS 1,000 ML IV SCH (16:04)
[2019-12-26 19:34] VITALS: BP 136/86
[2019-12-26] MEDS ORDERED: GABAPENTIN 400 MG CAPSULE PO SCH (21:00)
[2019-12-26] MEDS ORDERED: ATORVASTATIN 80 MG TABLET PO SCH (21:00)
[2019-12-26] MEDS ORDERED: ZOLPIDEM 10MG TABLET PO PRN (21:00)
[2019-12-27 00:27] VITALS: BP 123/77
[2019-12-27 03:21] VITALS: BP 111/70
[2019-12-27] MEDS ORDERED: OMEPRAZOLE 20 MG CAPSULE.DR PO SCH (06:00)
[2019-12-27] MEDS: LACTATED RINGERS 1,000 ML IV SCH (06:20)
[2019-12-27] MEDS: OXYcodone/APAP 5/325MG TABLET PO PRN ×2 (06:20→11:03)
[2019-12-27 07:53] VITALS: BP 121/70
[2019-12-27] MEDS ORDERED: VERAPAMIL ER 180MG TABLET.ER PO SCH (09:00)
[2019-12-27] MEDS ORDERED: DULOXETINE 30 MG CAPSULE.DR PO SCH (09:00)
[2019-12-27] MEDS ORDERED: SYNTHROID PO (09:03)
[2019-12-27] MEDS ORDERED: OXYC-302 PO (09:05)
[2019-12-27] MEDS: DULOXETINE 30 MG CAPSULE.DR PO SCH (09:35)
== END 2019-12-27 11:25 | disposition home or self-care (01) | DRG 627 ==
LOC: OUT 06:49 → 4NE 11:16 → OUT 11:58
PROVIDERS: ADMIT Surgery; ATTEND Surgery
PROC: 0GTK0ZZ Resection of Thyroid Gland, Open Approach (ICD-10-PCS; principal; 2019-12-26 09:00)
DX: E04.9 Nontoxic goiter, unspecified (principal); Z20.828 Contact with and (suspected) exposure to other viral communicable diseases; Z88.5 Allergy status to narcotic agent; Z91.018 Allergy to other foods; Z91.010 Allergy to peanuts; Z91.048 Other nonmedicinal substance allergy status
CPT/HCPCS: 36415; 80053; 82310; 87635; 88307; G0378; J0690; J1100; J2250; J2405; J2704; J2710; J3010; C1760; J0330; J7120